=== PATIENT | female | born 1950 | race Caucasian/White ===

== ENCOUNTER 2022-05-29 14:56 | Emergency (ER) | payer OTHER ==
[~2022-05-29] VITALS: Ht 170.2 cm; Wt 77.1 kg
[2022-05-29] MEDS ORDERED: METFORMIN HCL500 M1 PO (16:25)
[2022-05-29] MEDS ORDERED: DICLOFENAC SODI75 MG PO (16:25)
[2022-05-29] MEDS ORDERED: ESTRADIOL0.5 MG PO (16:25)
[2022-05-29] MEDS ORDERED: LISINOPRIL-HCT1 EAC1 PO (16:25)
== END 2022-05-29 19:52 | disposition home or self-care (01) ==
LOC: ER 14:56
DX: S09.90XA Unspecified injury of head, initial encounter (principal); S19.9XXA Unspecified injury of neck, initial encounter; S60.8 Other superficial injuries of wrist; S60.841A External constriction of right wrist, initial encounter; W18.30XA Fall on same level, unspecified, initial encounter; Y93.9 Activity, unspecified; Y92.538 Other ambulatory health services establishments as the place of occurrence of the external cause; Z88.1 Allergy status to other antibiotic agents

== ENCOUNTER → 2022-05-29 | Emergency (ER) | payer OTHER ==
[~2022-05-29] VITALS: Ht 170.2 cm; Wt 77.1 kg
[~2022-05-29] MED LIST: DICLOFENAC SODI75 MG PO; ESTRADIOL0.5 MG PO; LISINOPRIL-HCT1 EAC1 PO; METFORMIN HCL500 M1 PO
== END | disposition left against medical advice (07) ==
LOC: ER 11:24
DX: S09.93XA Unspecified injury of face, initial encounter (principal); W19.XXXA Unspecified fall, initial encounter; Y93.9 Activity, unspecified; Y92.838 Other recreation area as the place of occurrence of the external cause; Y99.9 Unspecified external cause status